=== PATIENT | female | born 1950 | race Hispanic/Latino ===

== ENCOUNTER 2019-05-11 23:38 | Inpatient (IN) | payer MEDICARE ==
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
[2019-05-12] MEDS ORDERED: PROVENTIL IH ONE (00:42)
[2019-05-12] MEDS ORDERED: ATROVENT IH ONE (00:42)
[2019-05-12] MEDS ORDERED: SOLU-Medrol IV ONE (00:43)
[2019-05-12] MEDS ORDERED: MAGNESIUM SULFATE 2GM/50ML 2 GM/50 ML BAG IV ONE (00:44)
--- NOTE | 2019-05-12 01:05 | XRay Report ---
CHEST 1 VIEW 05/12/2019 12:51 AM INDICATION / CLINICAL INFORMATION: shortness of breath. COMPARISON: None available. FINDINGS: SUPPORT DEVICES: None. HEART / MEDIASTINUM: No significant abnormality. LUNGS / PLEURA: No significant pulmonary or pleural abnormality. No pneumothorax. ADDITIONAL FINDINGS: No significant additional findings. IMPRESSION: No acute findings. Signer Name: Abilio Oropeza MD Signed: 05/12/2019 1:00 AM Workstation Name: [id number]
[2019-05-12 01:28] LABS: Hematocrit 41.3 % (30.3-42.9); Hemoglobin 14.6 gm/dl (10.1-14.3); Mean Corpuscular HGB Conc 35 % (30-34); Mean Corpuscular Hemoglobin 30 pg (28-32); Mean Corpuscular Volume 86 fl (79-97); Platelet Count 261 K/mm3 (140-440); Red Blood Count 4.83 M/mm3 (3.65-5.03); Red Cell Distribution Width 14.8 % (13.2-15.2)
[2019-05-12 01:46] LABS: Alanine Aminotransferase 13 units/L (7-56); Albumin 4.3 g/dL (3.9-5); BUN/Creatinine Ratio 16; Blood Urea Nitrogen 14 mg/dL (7-17); Calcium 9.6 mg/dL (8.4-10.2); Hemolysis Index 8
[2019-05-12] MEDS ORDERED: IBUPROFEN PO ONE ×2 (01:48→02:01)
[2019-05-12] MEDS ORDERED: ECOTRIN PO ONE (02:20)
[2019-05-12 03:13] LABS: HDL Cholesterol 55 mg/dL (40-59); LDL Cholesterol,Direct 118 mg/dL (50-130)
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
[2019-05-12] MEDS ORDERED: HEPARIN 10,000 UNITS/10 ML IV ONE (03:43)
[2019-05-12 04:04] LABS: Hematocrit 42.9 % (30.3-42.9); Hemoglobin 14.6 gm/dl (10.1-14.3)
[2019-05-12] MEDS: HEPARIN/ 0.45% NACL-25,000 UNIT/500 ML 25,000 UNIT/500 ML BAG IV SCH ×3 (04:14→17:53)
[2019-05-12 04:15] LABS: INR 0.97 (0.87-1.13)
[2019-05-12] MEDS ORDERED: MORPHINE IV PRN (04:15)
[2019-05-12 04:16] LABS: Partial Thromboplastin Time 21.1 Sec. (24.2-36.6)
[2019-05-12] MEDS ORDERED: ZOFRAN IV PRN (04:16)
[2019-05-12] MEDS ORDERED: TYLENOL PO PRN (04:21)
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
[2019-05-12] MEDS: SOLU-Medrol IV SCH ×2 (05:49→14:18)
[2019-05-12] MEDS: NITRO-BID 2% TP SCH ×4 (06:10→19:37)
[2019-05-12 07:15] LABS: Creatine Kinase MB 5.4 ng/mL (0.0-4.0)
[2019-05-12] MEDS: DUONEB *Not for PRN Use IH SCH ×3 (10:37→19:48)
[2019-05-12] MEDS: ASPIRIN PO SCH (11:09)
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
[2019-05-12] MEDS: LEVAQUIN 750MG/150ML 750 MG/150 ML BAG IV SCH (11:52)
[2019-05-12 13:05] LABS: Creatine Kinase MB 5.9 ng/mL (0.0-4.0)
--- NOTE | 2019-05-12 13:50 | Event Note ---
Date: 05/12/19 Patient with SOB, COPD exacerbation. elevated Troponin, poss NSTEMI. I have seen and examined her.
[2019-05-12] MEDS ORDERED: PROVENTIL IH PRN (13:51)
[2019-05-12] MEDS: PEPCID PO SCH ×2 (17:38→21:22)
[2019-05-12] MEDS: NORCO 5/325 PO PRN (21:22)
[2019-05-13] MEDS: NORCO 5/325 PO PRN ×2 (03:50→16:26)
[2019-05-13 06:03] LABS: Hematocrit 42.8 % (30.3-42.9); Hemoglobin 14.1 gm/dl (10.1-14.3); Mean Corpuscular HGB Conc 33 % (30-34); Mean Corpuscular Hemoglobin 29 pg (28-32); Mean Corpuscular Volume 87 fl (79-97); Platelet Count 260 K/mm3 (140-440); Red Cell Distribution Width 14.5 % (13.2-15.2)
[2019-05-13 06:34] LABS: BUN/Creatinine Ratio 18; Blood Urea Nitrogen 14 mg/dL (7-17); Calcium 9.2 mg/dL (8.4-10.2); Hemolysis Index 27
[2019-05-13] MEDS: NITRO-BID 2% TP SCH ×4 (06:39→18:40)
[2019-05-13] MEDS: DUONEB *Not for PRN Use IH SCH ×3 (09:01→19:50)
[2019-05-13] MEDS: ASPIRIN PO SCH (10:21)
[2019-05-13] MEDS: PEPCID PO SCH ×2 (10:21→21:28)
[2019-05-13] MEDS: LEVAQUIN 750MG/150ML 750 MG/150 ML BAG IV SCH (10:21)
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
--- NOTE | 2019-05-13 13:55 | Consultation ---
History of Present Illness Consult date: 05/13/19 Requesting physician: LATRICIA TURNER Reason for consult: COPD History of present illness: 68 y/o female with known COPD. Not followed by a strap stitcher as her PCP manages her admitted with COPD exacerbation. patient takes Symbicort and PRN ventolin as well as duonebs at home. She also suffers from chronic respiratory failure and wears 2 liters continuous. Per patient, most recent episode sparked by fumes from food her son was cooking. She has not been out of medication. Past History Past Medical History: COPD Past Surgical History: No surgical history Social history: no significant social history Family history: no significant family history Medications and Allergies Allergies Allergy/AdvReac Type Severity Reaction Status Date / Time dexamethasone Allergy Unknown Verified 05/12/19 00:27 omeprazole Allergy Unknown Verified 05/12/19 00:27 oxycodone Allergy Unknown Verified 05/12/19 00:27 prednisone Allergy Unknown Verified 05/12/19 00:27 tramadol Allergy Unknown Verified 05/12/19 00:27 Home Medications Medication Instructions Recorded Confirmed Last Taken Type ALBUTEROL Inhaler (OR & NICU) 2 puff IH QID PRN 07/17/16 05/12/19 Unknown History [Proair] Ranitidine HCl [Zantac 150 MG TAB] 150 mg PO BID 07/17/16 05/12/19 Unknown History ALPRAZolam [Xanax TAB] 1 tab PO TID PRN 05/12/19 05/12/19 Unknown History Aspirin [Aspirin BABY CHEW TAB] 81 mg PO QDAY 05/12/19 05/12/19 Unknown History Nitroglycerin [Nitrostat] 1 tab PO DAILY PRN 05/12/19 05/12/19 Unknown History Symbicort 160-4.5 Mcg Inhaler 2 puff IH BID 05/12/19 05/12/19 Unknown History Vitamin D3 1,000 UNIT TAB 1 tab PO DAILY 05/12/19 05/12/19 Unknown History Active Meds: Active Medications Acetaminophen (Tylenol) 650 mg PO Q4H PRN PRN Reason: Fever >101 Acetaminophen/Hydrocodone Bitart ([place] 5/325) 1 each PO Q6H PRN PRN Reason: Pain, Moderate (4-6) Last Admin: 05/13/19 03:50 Dose: 1 each Documented by: Albuterol (Proventil) 2.5 mg IH Q4HRT PRN PRN Reason: Shortness Of Breath Albuterol/Ipratropium (Duoneb *Not For Prn Use*) 1 ampul IH TIDRT [facility] Last Admin: 05/13/19 13:22 Dose: 1 ampul Documented by: Aspirin (Aspirin) 325 mg PO QDAY [facility] Last Admin: 05/13/19 10:21 Dose: 325 mg Documented by: Famotidine (Pepcid) 20 mg PO BID [facility] Last Admin: 05/13/19 10:21 Dose: 20 mg Documented by: Levofloxacin/Dextrose (Levaquin 750mg/150ml) 750 mg in 150 mls @ 100 mls/hr IV Q24HR [facility]; Protocol Last Admin: 05/13/19 10:21 Dose: 100 mls/hr Documented by: Morphine Sulfate (Morphine) 2 mg IV Q4H PRN PRN Reason: Pain, Moderate (4-6) Nitroglycerin (Nitro-Bid 2%) 0.5 inch TP QIDNTG [facility]; Protocol Last Admin: 05/13/19 06:39 Dose: Not Given Documented by: Ondansetron HCl (Zofran) 4 mg IV Q8H PRN PRN Reason: Nausea And Vomiting Review of Systems All systems: negative Physical Examination Vital signs: Vital Signs Temp Pulse Resp BP Pulse Ox 98 F 90 17 114/71 94 05/12/19 00:12 05/12/19 00:12 05/12/19 00:12 05/12/19 00:12 05/12/19 00:12 General appearance: no acute distress, alert Eyes: non-icteric ENT: other (nose is super red) Effort: mildly labored Ascultation: Bilateral: wheezes Percussion: Bilateral: not dull Tactile fremitus: Bilateral: normal Cardiovascular: regular rate and rhythm Gastrointestinal: normoactive bowel sounds, soft Extremities: no edema Results - Laboratory Findings CBC and BMP: 05/13/19 05:04 05/13/19 05:04 PT/INR, D-dimer PT 12.6 Sec. (12.2-14.9) 05/12/19 03:54 INR 0.97 (0.87-1.13) 05/12/19 03:54 Abnormal lab findings: Abnormal Labs 05/12/19 05/12/19 05/12/19 01:19 01:19 03:54 WBC Hgb 14.6 H MCHC 35 H APTT Heparin Anti-Xa Level Glucose 116 H CK-MB (CK-2) CK-MB (CK-2) Rel Index Troponin T 0.134 H* 0.137 H* 05/12/19 05/12/19 05/12/19 03:54 03:54 06:10 WBC Hgb 14.6 H MCHC APTT 21.1 L Heparin Anti-Xa Level Glucose CK-MB (CK-2) 5.4 H CK-MB (CK-2) Rel Index 9.0 H Troponin T 0.116 H* 05/12/19 05/13/19 05/13/19 12:14 05:04 05:04 WBC 12.8 H Hgb MCHC APTT Heparin Anti-Xa Level Glucose 148 H CK-MB (CK-2) 5.9 H CK-MB (CK-2) Rel Index 9.0 H Troponin T 0.073 H D 05/13/19 09:22 WBC Hgb MCHC APTT Heparin Anti-Xa Level 0.15 L Glucose CK-MB (CK-2) CK-MB (CK-2) Rel Index Troponin T - Diagnostic Findings Chest x-ray: image reviewed CT scan - chest: image reviewed (diffuse emphysema, lower lobe predominant) Assessment and Plan 68 y/o female with COPD and chronic respiratory failure also with steroid allergy. 1. Continue current regimen 2. Patient at some point should be desensitized to steroids as she will need them in the future 3. She is managed outpatient seay by her primary, will leave it up to her if she wants to see a specialist. 4. Suggest checking an echo and screening her for pulmonary hypertension.
[2019-05-13] MEDS ORDERED: DELTASONE PO SCH (14:00)
[2019-05-13] MEDS ORDERED: TUMS PO PRN (15:29)
--- NOTE | 2019-05-13 15:30 | Progress Note ---
Assessment and Plan - Patient Problems (1) COPD (chronic obstructive pulmonary disease) Current Visit: Yes Status: Acute Plan to address problem: Cardiac status stable and asymptomatic. Echocardiogram shows left ventricular systolic ejection fraction 45-50%. Subjective Date of service: 05/13/19 Interval history: Patient is comfortable, no new complaints, cardiac status is asymptomatic. Echocardiogram shows the left ventricular systolic ejection fraction 45-50%. Objective Vital Signs Temp Pulse Pulse Resp Resp BP Pulse Ox 05/13/19 09:40 97 05/13/19 09:01 97.4 F L 18 95/58 05/13/19 09:00 112 H 18 05/13/19 04:53 98.1 F 78 18 91/58 95 05/13/19 00:26 97.9 F 96 H 18 106/61 96 05/12/19 23:00 10 L 05/12/19 19:51 99 05/12/19 19:48 109 H 20 05/12/19 19:18 98.1 F 103 H 18 113/59 97 05/12/19 18:45 98.0 F 105 H 18 114/69 96 05/12/19 16:05 20 95 05/12/19 15:59 100 H 18 - Physical Examination General: Appears Well, No Apparent Distress HEENT: Positive: PERRL Neck: Positive: neck supple Cardiac: Positive: Reg Rate and Rhythm Lungs: Positive: Decreased Breath Sounds Neuro: Positive: Grossly Intact Abdomen: Positive: Soft Skin: Positive: Clear Extremities: Absent: edema - Labs and Meds CBC 05/13/19 Range/Units 05:04 WBC 12.8 H (4.5-11.0) K/mm3 RBC 4.90 (3.65-5.03) M/mm3 Hgb 14.1 (10.1-14.3) gm/dl Hct 42.8 (30.3-42.9) % Plt Count 260 (140-440) K/mm3 Comprehensive Metabolic Panel 05/13/19 Range/Units 05:04 Sodium 141 (137-145) mmol/L Potassium 5.0 D (3.6-5.0) mmol/L Chloride 105.1 (98-107) mmol/L Carbon Dioxide 25 (22-30) mmol/L BUN 14 (7-17) mg/dL Creatinine 0.8 (0.7-1.2) mg/dL Glucose 148 H (65-100) mg/dL Calcium 9.2 (8.4-10.2) mg/dL
[2019-05-14 05:33] LABS: Hemoglobin 13.8 gm/dl (10.1-14.3); Mean Corpuscular HGB Conc 34 % (30-34); Mean Corpuscular Hemoglobin 29 pg (28-32); Mean Corpuscular Volume 87 fl (79-97); Platelet Count 221 K/mm3 (140-440); Red Blood Count 4.71 M/mm3 (3.65-5.03); Red Cell Distribution Width 14.8 % (13.2-15.2)
[2019-05-14 06:01] LABS: Calcium 9.4 mg/dL (8.4-10.2)
[2019-05-14] MEDS: NITRO-BID 2% TP SCH ×3 (06:02→09:49)
[2019-05-14] MEDS: DUONEB *Not for PRN Use IH SCH ×2 (08:25→13:46)
[2019-05-14] MEDS: PEPCID PO SCH (09:44)
[2019-05-14] MEDS: ASPIRIN PO SCH (09:44)
[2019-05-14] MEDS: LEVAQUIN 750MG/150ML 750 MG/150 ML BAG IV SCH (09:45)
[2019-05-14 09:49] VITALS: BP 112/60
--- NOTE | 2019-05-14 12:45 | Progress Note ---
Assessment and Plan COPD exacerbation Mild elevated troponin, nonspecific patient denies chest pain Echocardiogram shows left ventricular systolic ejection fraction 45-50%. Conservative cardiac management. We will follow intermittently. Subjective Date of service: 05/14/19 Interval history: No cardiac complaints. Objective Vital Signs Temp Pulse Pulse Pulse Resp Resp Resp 05/14/19 08:26 79 75 25 H 18 05/14/19 07:50 98.0 F 79 18 05/14/19 03:22 97.9 F 70 16 05/14/19 00:07 98.6 F 88 18 05/13/19 23:21 98.1 F 89 18 05/13/19 19:51 91 H 18 05/13/19 19:35 88 05/13/19 19:00 98.5 F 88 16 05/13/19 17:37 82 05/13/19 16:55 97.8 F 18 05/13/19 13:20 110 H 20 BP BP Pulse Ox 05/14/19 08:26 97 05/14/19 07:50 119/66 98 05/14/19 03:22 112/60 96 05/14/19 00:07 115/65 96 05/13/19 23:21 115/65 96 05/13/19 19:51 96 05/13/19 19:35 05/13/19 19:00 109/71 95 05/13/19 17:37 05/13/19 16:55 113/65 05/13/19 13:20 - Physical Examination General: No Apparent Distress HEENT: Positive: PERRL Neck: Positive: neck supple Cardiac: Positive: Reg Rate and Rhythm Lungs: Positive: Decreased Breath Sounds Neuro: Positive: Grossly Intact Abdomen: Positive: Soft Extremities: Absent: edema - Labs and Meds CBC 05/14/19 Range/Units 04:29 WBC 8.2 (4.5-11.0) K/mm3 RBC 4.71 (3.65-5.03) M/mm3 Hgb 13.8 (10.1-14.3) gm/dl Hct 41.0 (30.3-42.9) % Plt Count 221 (140-440) K/mm3 Comprehensive Metabolic Panel 05/14/19 Range/Units 04:29 Sodium 142 (137-145) mmol/L Potassium 4.5 (3.6-5.0) mmol/L Chloride 103.4 (98-107) mmol/L Carbon Dioxide 27 (22-30) mmol/L BUN 21 H (7-17) mg/dL Creatinine 1.0 (0.7-1.2) mg/dL Glucose 93 (65-100) mg/dL Calcium 9.4 (8.4-10.2) mg/dL
--- NOTE | 2019-05-14 13:06 | Discharge Summary ---
Providers - Providers Date of Admission: 05/12/19 04:40 Date of discharge: 05/14/19 Attending physician: LATRICIA TURNER 05/12/19 06:00 Consult to Physician [CONS] Routine Comment: Consulting Provider: MATT SIMMS Physician Instructions: Reason For Exam: NSTEMI 05/12/19 13:54 Consult to Physician [CONS] Routine Comment: Consulting Provider: [place] [place] Physician Instructions: Reason For Exam: COPD exacerbation [facility] Hospital[facility] Condition: Fair Disposition: DC-01 TO HOME OR SELFCARE Core Measure Documentation - Palliative Care Palliative Care/ Comfort Measures: Not Applicable Exam - Constitutional Vitals: Temp Pulse Resp BP Pulse Ox 98.0 F 75 18 119/66 97 05/14/19 07:50 05/14/19 08:26 05/14/19 08:26 05/14/19 07:50 05/14/19 08:26 Plan Activity: advance as tolerated Diet: low fat, low cholesterol, low salt Additional Instructions: 1.Follow up with PCP, Dr. Morris in 1 week. 2.Follow up with Dr. Altamirano, cardiology in 1 week [facility] - 3-5 Days Prescriptions: Famotidine [Pepcid] 20 mg PO BID #30 tablet
--- NOTE | 2019-05-14 13:46 | Progress Note ---
Assessment and Plan 05/14 copd, exac ?smoke exposure back to baseline OK for d/c f/up w PCP Dr Morris Subjective Date of service: 05/14/19 Principal diagnosis: copd Interval history: 05/14 cont'd improvement back to baseline OK for d/c Has 02 nebs at home ??allergy to steroid Objective Vital Signs - 12hr 05/14/19 05/14/19 05/14/19 03:22 07:50 08:26 Temperature 97.9 F 98.0 F Pulse Rate 70 79 Pulse Rate [ 79 Anterior Bilateral Throughout] Pulse Rate [ 75 Anterior] Respiratory 16 18 Rate Respiratory 25 H Rate [Anterior Bilateral Throughout] Respiratory 18 Rate [Anterior] Blood Pressure 112/60 Blood Pressure 119/66 [Right] O2 Sat by Pulse 96 98 97 Oximetry Constitutional: no acute distress, alert Eyes: non-icteric ENT: oropharynx dry Effort: mildly labored Ascultation: Bilateral: diminished breath sounds, wheezes (mild ) Percussion: Bilateral: not dull Tactile fremitus: Bilateral: normal Cardiovascular: regular rate and rhythm Gastrointestinal: normoactive bowel sounds, soft Extremities: no edema Neurologic: normal mental status CBC and BMP: 05/14/19 04:29 05/14/19 04:29 ABG, PT/INR, D-dimer: PT/INR, D-dimer PT 12.6 Sec. (12.2-14.9) 05/12/19 03:54 INR 0.97 (0.87-1.13) 05/12/19 03:54 Abnormal lab findings: Abnormal Labs 05/12/19 05/12/19 05/12/19 01:19 01:19 03:54 WBC Hgb 14.6 H MCHC 35 H APTT Heparin Anti-Xa Level BUN Glucose 116 H CK-MB (CK-2) CK-MB (CK-2) Rel Index Troponin T 0.134 H* 0.137 H* NT-Pro-B Natriuret Pep 05/12/19 05/12/19 05/12/19 03:54 03:54 06:10 WBC Hgb 14.6 H MCHC APTT 21.1 L Heparin Anti-Xa Level BUN Glucose CK-MB (CK-2) 5.4 H CK-MB (CK-2) Rel Index 9.0 H Troponin T 0.116 H* NT-Pro-B Natriuret Pep 05/12/19 05/13/19 05/13/19 12:14 05:04 05:04 WBC 12.8 H Hgb MCHC APTT Heparin Anti-Xa Level BUN Glucose 148 H CK-MB (CK-2) 5.9 H CK-MB (CK-2) Rel Index 9.0 H Troponin T 0.073 H D NT-Pro-B Natriuret Pep 05/13/19 05/13/19 05/14/19 09:22 14:34 04:29 WBC Hgb MCHC APTT Heparin Anti-Xa Level 0.15 L BUN 21 H Glucose CK-MB (CK-2) CK-MB (CK-2) Rel Index Troponin T NT-Pro-B Natriuret Pep 1691 H
== END 2019-05-14 16:50 | disposition home or self-care (01) | DRG 280 ==
LOC: ED 23:38 → 4A 05-12 04:40
PROVIDERS: ADMIT Internal Medicine; ATTEND Internal Medicine
DX: I21.4 Non-ST elevation (NSTEMI) myocardial infarction (principal); J96.20 Acute and chronic respiratory failure, unspecified whether with hypoxia or hypercapnia; J45.901 Unspecified asthma with (acute) exacerbation; J44.1 Chronic obstructive pulmonary disease with (acute) exacerbation; F41.9 Anxiety disorder, unspecified; T59.811A Toxic effect of smoke, accidental (unintentional), initial encounter; Z99.81 Dependence on supplemental oxygen; Z87.891 Personal history of nicotine dependence; Z88.5 Allergy status to narcotic agent; Z88.8 Allergy status to other drugs, medicaments and biological substances; Z79.51 Long term (current) use of inhaled steroids; Z79.82 Long term (current) use of aspirin; Z79.01 Long term (current) use of anticoagulants; Y92.098 Other place in other non-institutional residence as the place of occurrence of the external cause
CPT/HCPCS: 36415; 71045; 71275; 80048; 80053; 80061; 82550; 82553; 83880; 84484; 85014; 85018; 85027; 85049; 85520; 85610; 85730; 93005; 93010; 93306; 94640; 94644; 94760; 96365; 96375; G0378; J1644; J1956; J2930; J3475; Q9967